=== PATIENT | female | born 1945 | race Caucasian/White ===

== ENCOUNTER 2018-05-25 13:51 | Outpatient (CLI) | payer MEDICARE, OTHER ==
--- NOTE | 2018-05-25 15:50 | CT ---
CONTRAST ENHANCED CT IMAGES SOFT TISSUE NECK: History: Right neck mass. Technique: Contrast enhanced CT of the soft tissue neck is performed. FINDINGS: Images demonstrate a 6.5 x 18.5 x 26 mm right neck soft tissue subcutaneous area of fat density just anterior and lateral through the insertion of the right sternocleidomastoid muscle. This area is subc utaneous tissue and is fat, compatible with a lipoma. No associated masses or lesions seen. The rest of the soft tissue neck CT is unremarkable with no evidence of masses or lesions. The parotid and sub mandibular glands are unremarkable. No significant evidence of lymphadenopathy is seen. IMPRESSION: 1. Right supraclavicular neck lipoma. 2. The patient has had previous facial trauma and surgical hardware placed. 3. Mid cervical changes o f spondylosis seen at C3-4 and C4-5. There is also changes of spondylosis seen at C6-7. POS: [facility]
[2018-05-25] MEDS ORDERED: ISOVUE-370 76%-LOCM 1 ML ONE (16:22)
== END 2018-05-25 13:52 | disposition home or self-care (01) ==
LOC: BICULT 13:51
PROVIDERS: ATTEND Family Medicine
DX: R22.1 Localized swelling, mass and lump, neck (principal); D17.0 Benign lipomatous neoplasm of skin and subcutaneous tissue of head, face and neck; M47.812 Spondylosis without myelopathy or radiculopathy, cervical region; Z98.890 Other specified postprocedural states
CPT/HCPCS: 70491; 82565

== ENCOUNTER 2018-06-05 11:58 | Outpatient (CLI) | payer MEDICARE, OTHER ==
[2018-06-05 14:22] LABS: #Basophils 0.1 thou/uL (0.0-0.2); #Eosinphils 0.2 thou/uL (0.0-0.7); #Lymphocytes 2.3 thou/uL (1.20-3.40); #Monocytes 0.4 thou/uL (0.11-0.59); #Neutrophils 4.7 thou/uL (1.40-6.50); %Basophils 1.6 % (0.0-1.0); %Eosinophils 2.1 % (0.0-10.0); %Lymphocytes 30.2 % (21.0-51.0); %Monocytes 5.2 % (0.0-10.0); %Neutrophils 60.9 % (42.0-75.0); Hemoglobin 13.4 g/dL (12.0-16.0); Mean Corpuscular HGB CONC 31.5 g/dL (32.0-36.0); Mean Corpuscular Volume 92.1 fL (78.0-98.0); Mean Platelet Volume 6.9 fL (7.4-10.4); Platelet Count 357 thou/uL (130-400); RBC Distribution Width 11.4 % (11.5-14.5); Red Blood Cell (RBC) Count 4.62 mill/uL (4.20-5.40); White Blood Cell (WBC) Count 7.7 thou/uL (4.8-10.8)
[2018-06-05 14:48] LABS: ALT (SGPT) 19 U/L (8-55); AST (SGOT) 22 U/L (5-34); Albumin 4.1 g/dL (3.4-4.8); Alkaline Phosphatase 68 U/L (40-150); Anion Gap 10 mmol/L (10-20); BUN (Urea Nitrogen) 16 mg/dL (9.8-20.1); Bilirubin, Total 1.1 mg/dL (0.2-1.2); Calc. Creatinine Clearance 0 mL/min (70-130); Calcium 9.7 mg/dL (7.8-10.44); Carbon Dioxide 29 mmol/L (23-31); Chloride 103 mmol/L (98-107); Estimated GFR-MDRD 67; Globulin 2.9 g/dL (2.4-3.5); Glucose 86 mg/dL (83-110); Potassium 4.2 mmol/L (3.5-5.1); Sodium 138 mmol/L (136-145)
== END 2018-06-05 11:59 | disposition home or self-care (01) ==
LOC: LABBT 11:58
PROVIDERS: ATTEND Surgery
DX: Z01.818 Encounter for other preprocedural examination (principal); D17.0 Benign lipomatous neoplasm of skin and subcutaneous tissue of head, face and neck
CPT/HCPCS: 80053; 85025; 93005; 93010

== ENCOUNTER 2018-06-13 10:16 | Day surgery (SDC) | payer MEDICARE, OTHER ==
[2018-06-05 12:17] VITALS: BMI 17.4
[2018-06-13] MEDS ORDERED: CEFAZOLIN 2 GM/50 ML BAG ONE (10:35)
[2018-06-13] MEDS ORDERED: PROPOFOL 20 ML ONE (12:18)
[2018-06-13] MEDS ORDERED: Lidocaine 2% PF 5 ML VIAL ONE (12:19)
[2018-06-13] MEDS ORDERED: Bupivacaine HCl 0.5%/Epinephrine 1:200,000/PF 30 ml Vial ONE (12:19)
[2018-06-13] MEDS ORDERED: Lidocaine 1% PF 5 ML VIAL ONE (17:13)
[2018-06-13] MEDS ORDERED: PROPOFOL 200 MG/20 ML VIAL ONE (17:13)
--- NOTE | 2018-06-13 18:04 | OP ---
DATE OF PROCEDURE: 06/13/2018 PREOPERATIVE DIAGNOSIS: Right neck lipoma. PROCEDURE PERFORMED: Excisional biopsy. INDICATIONS FOR PROCEDURE: A 72-year-old female with an enlarging soft tissue mass of the right anterior neck. She had a CT scan showing that it was probably a lipoma. FINDINGS: A 2 x 1 x 0.5 cm multilobular fatty mass consistent with lipoma of right anterior neck. DESCRIPTION OF PROCEDURE: After informed consent was obtained, the patient was taken to the operating room, given total IV anesthesia, and placed in the supine position. The right neck was prepped and draped in the usual fashion. Local anesthesia was infiltrated subcutaneously and deep. A transverse incision was performed, subcu was divided sharply, and the fatty mass was dissected out using blunt and sharp dissection. Hemostasis was achieved with electrocautery. The mass was sent to Pathology for further analysis. Subcu was reapproximated with interrupted 3-0 Vicryl. Skin was closed with the running subcuticular 4-0 Rapide. Steri-Strips were applied. Sterile bandage was applied. The patient tolerated the procedure well and transferred to Recovery in good condition. Sponge and needle counts were verified and correct x2. Job ID: [id number]
--- NOTE | 2018-06-16 07:24 | PQF ---
[facility] POST DISCHARGE CLINICAL DOCUMENTATION IMPROVEMENT CLARIFICATION FORM l Todays Date: 06/16/18 l Patients Name JUANJO LEON l l Admit Date 06/13/18 l Disch Date 06/13/18 Key Account Director Name Brian Naik Email: [email or web address] Cell: [phone] To be completed by Key Account Director: Present Clinical Indicators - Signs / Symptoms Results and Location in Medical Record [ ] Documentation of: [ ] [ ] Documentation of: [ ] [ ] Documentation of: [ ] [ ] Documentation of: [ ] [ ] Risks [ ] [ ] [ ] Treatment [ ] LIPOMA OF RIGHT NECK QUERY FOR SIZE OF EXCISED MARGINS [ ] [ ] To be completed by Physician: AL GALLARDO JR. The documentation in this patients record requires clarification to ensure coding compliance and accuracy. Check the appropriate box and include in your discharge summary. [ x] ___3cm by 2cm by 0.8cm [ ] [ ] [ ] Please check this box if this does not apply to this patient [ ] Unable to determine [ ] Other diagnosis: Review the following information and exercise your independent professional judgment in responding to the clarification. Based upon the clinical findings, risk factors, and treatment, please clarify if you are treating one of the above probable or suspected diagnoses. Physician Signature: Date Time MTDD
== END 2018-06-13 14:10 | disposition home or self-care (01) ==
LOC: SDC 10:16
PROVIDERS: ATTEND Surgery
PROC: 0JB40ZZ Excision of Right Neck Subcutaneous Tissue and Fascia, Open Approach (ICD-10-PCS; principal; 2018-06-13)
DX: D17.0 Benign lipomatous neoplasm of skin and subcutaneous tissue of head, face and neck (principal); M19.90 Unspecified osteoarthritis, unspecified site; F32.9 Major depressive disorder, single episode, unspecified; E07.9 Disorder of thyroid, unspecified; I10 Essential (primary) hypertension; Z79.899 Other long term (current) drug therapy; Z88.2 Allergy status to sulfonamides; Z88.8 Allergy status to other drugs, medicaments and biological substances; Z91.040 Latex allergy status; Z91.048 Other nonmedicinal substance allergy status
CPT/HCPCS: 88304; J0670; J2001; J2704

== ENCOUNTER 2022-04-06 09:10 | Outpatient (CLI) | payer MEDICARE, OTHER | END 2022-04-06 09:11 | disposition home or self-care (01) | LOC: BICMAMMO 09:10 | PROVIDERS: ATTEND Internal Medicine | DX: Z12.31 Encounter for screening mammogram for malignant neoplasm of breast (principal); Z98.890 Other specified postprocedural states | CPT/HCPCS: 77063; 77067 ==

== ENCOUNTER 2023-05-30 11:05 | Outpatient (CLI) | payer MEDICARE | END 2023-05-30 11:06 | disposition home or self-care (01) | LOC: BICMAMMO 11:05 | PROVIDERS: ATTEND Internal Medicine | DX: Z12.31 Encounter for screening mammogram for malignant neoplasm of breast (principal); Z98.890 Other specified postprocedural states | CPT/HCPCS: 77063; 77067 ==